=== PATIENT | male | born 1955 | race American Indian/Alaskan Native ===

== ENCOUNTER 2021-09-15 22:55 | Emergency (ER) | payer MEDICARE ==
[2021-09-15 23:58] VITALS: BP 157/68
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
--- NOTE | 2021-09-16 10:09 | XRay Report ---
RIGHT KNEE 3 VIEWS INDICATION / CLINICAL INFORMATION: knee pain right COMPARISON: 566 FINDINGS: BONES / JOINT(S): No acute fracture or subluxation. There is a healed lateral tibial plateau fracture . SOFT TISSUES: Small effusion. ADDITIONAL FINDINGS: None. IMPRESSION: Posttraumatic deformity of the lateral tibial plateau. Small effusion. Signer Name: Luis Boogie MD Signed: 09/16/2021 10:04 AM Workstation Name: [id number]
== END 2021-09-16 11:30 | disposition home or self-care (01) ==
LOC: ED 22:55
DX: M25.561 Pain in right knee (principal); M25.461 Effusion, right knee; Z87.891 Personal history of nicotine dependence
CPT/HCPCS: 99283; 99284